=== PATIENT | female | born 1985 | race Caucasian/White ===

== ENCOUNTER 2019-02-19 09:47 | Emergency (ER) | payer BC ==
[~2019-02-19] VITALS: Ht 167.6 cm; Wt 54.4 kg
--- NOTE | 2019-02-19 09:49 | NUR ---
ED Nurse Note: Regla walked in to ER from home. Pt presents with an upper right lip lesion x 1 day. Pt reports pain rated at 5/10. A&O x4, V/S stable with no s/s of acute distress noted at this time.
[2019-02-19 09:52] VITALS: BP 115/77
--- NOTE | 2019-02-19 10:06 | Emergency Room Report ---
History of Present Illness General Chief Complaint: Pain Source: Patient Present Illness HPI Patient is a 33-year-old female who presents after increased cold sores to her lip. She reports having similar symptoms in the past. She states she is currently on the last day of her menses. She denies any fever. She reports having some lesions to her upper and lower lip. This had gradual onset. She denies any prior history of immunocompromise. She denies any genital sores. She denies any vomiting or diarrhea or other complaints at this time. Allergies: Coded Allergies: No Known Allergies (Unverified , 02/19/19) Patient History Past Medical History: see triage record Now: No Reviewed Nursing Documentation: PMH: Agreed; PSxH: Agreed Nursing Documentation-PMH Past Medical History: No Stated History Review of Systems All Other Systems: negative except mentioned in HPI Physical Exam Vital Signs Date Time Temp Pulse Resp B/P (MAP) Pulse Ox O2 Delivery O2 Flow Rate FiO2 02/19/19 09:49 98.4 72 18 115/77 (90) 98 Room Air General Appearance: well appearing, no apparent distress, alert, GCS 15 Head: normocephalic, atraumatic ENT: hearing grossly normal, normal voice, other - multiple vesicular lesions to lips upper and lower Neck: full range of motion, supple Respiratory: no respiratory distress, speaking full sentences Cardiovascular #1: normal inspection, no edema Gastrointestinal: normal inspection, non tender Musculoskeletal: normal inspection, back normal, normal range of motion Neurologic: normal inspection, alert, oriented x3, responsive, clothing examiner III-XII nml as tested, normal gait Psychiatric: mood/affect normal Skin: no rash Medical Decision Making Diagnostic Impression: Primary Impression: Herpes labialis ER Course Patient presented for cold sores to her lips. Differential diagnosis included but was not limited to contact dermatitis, herpes labialis,hand foot and mouth disease among others. Patient has a benign exam and does not appear to require any imaging or laboratory testing at this time. Patient appears to have uncomplicated HSV infection. No signs of meningitis. Patient appears to have normal mental status. She denies any other lesions at this time. Patient will be given prescription for oral antivirals. She is advised to follow-up with primary care physician for recheck.Patient is advised to return if worse. Labs Test 02/19/19 10:05 Urine HCG, Qualitative Negative (NEGATIVE) Last Vital Signs Date Time Temp Pulse Resp B/P (MAP) Pulse Ox O2 Delivery O2 Flow Rate FiO2 02/19/19 09:52 98.4 72 18 115/77 98 Room Air Status: improved Disposition: HOME, SELF-CARE Condition: Stable Scripts Valacyclovir Hcl* (VALTREX*) 500 Mg Tablet 1000 MG ORAL TWICE A DAY, #14 TAB Prov: Demetris Littlejohn MD 02/19/19 Demetris Littlejohn MD Feb 19, 2019 10:06
[2019-02-19] MEDS ORDERED: VALACYCLOVIR500 MG ORAL (10:11)
[2019-02-19 10:18] VITALS: BP 120/72
--- NOTE | 2019-02-19 10:19 | NUR ---
ER DISCHARGE NOTE: Patient is cleared to be discharged per ERMD, pt is aox4, on room air, with stable vital signs. pt was given dc and prescription instructions, pt was able to verbalize understanding, pt id band removed without complications. pt is able to ambulate with steady gait. pt took all belongings.
== END 2019-02-19 10:20 | disposition home or self-care (01) ==
LOC: EMR 09:56
DX: B00.1 Herpesviral vesicular dermatitis (principal)
CPT/HCPCS: 81025; 99282